=== PATIENT | male | born 1995 | race Two or more races ===

== ENCOUNTER 2023-01-23 19:44 | Inpatient (IN) | payer MEDICAID, OTHER ==
[~2023-01-23] VITALS: Ht 177.8 cm; Wt 118.6 kg
[2023-01-24] MEDS ORDERED: DexAMETHasone SOD PHOS 10MG/1ML VIAL INJ IV ONE ×2 (01:15→10:00)
[2023-01-24] MEDS ORDERED: diphenhdrAMINE HCL 50 MG/1 ML VL IV ONE (01:15)
[2023-01-24 01:44] LABS: Basophils # (auto) 0 10 ^3/uL (0-0.2); Basophils % (auto) 0.3 % (0.0-2.0); Eosinophils # (auto) 0.4 10 ^3/uL (0-0.8); Eosinophils % (auto) 3.7 % (0.0-7.0); Hematocrit 47.2 % (41.0-53.0); Hemoglobin 15.4 g/dL (13.5-17.5); Lymphocytes % (auto) 20.8 % (10.0-50.0); Mean Corpuscular Hemoglobin 29.7 pg (28.0-32.0); Mean Corpuscular Hgb Conc. 32.6 g/dL (32.0-36.0); Mean Corpuscular Volume 91.2 fL (80.0-100.0); Monocytes # (auto) 0.5 10 ^3/uL (0-1.3); Monocytes % (auto) 5.5 % (0.0-12.0); Neutrophils # (auto) 6.9 10 ^3/uL (1.6-8.6); Neutrophils % (auto) 69.7 % (37.0-80.0); Nucleated Red Blood Cells % 0.1 %; Red Blood Cells 5.18 10^6/uL (4.5-5.90); Red Cell Distribution Width 14.2 % (11.8-14.3); White Blood Cell 9.8 10^3/uL (4.4-10.8)
[2023-01-24 01:51] LABS: INR 1.03 (0.9-1.15)
[2023-01-24 01:56] LABS: Anion Gap 6 (5-15); Blood Alcohol < 3.0 mg/dL (<10); Blood Urea Nitrogen 15 mg/dL (7-18); Calcium 9.1 mg/dL (8.5-10.1); Carbon Dioxide 23 mmol/L (21-32); Chloride 110 mmol/L (98-107); Glucose 102 mg/dL (74-106); Lipase 130 U/L (73-393); Magnesium 2.4 mg/dL (1.6-2.6); Potassium 3.5 mmol/L (3.5-5.1); Sodium 139 mmol/L (136-145)
[2023-01-24 02:04] LABS: Alanine Aminotransferase 49 U/L (16-61); Alkaline Phosphatase 67 U/L (45-117); Aspartate Aminotransferase 22 U/L (15-37); BUN/Creatinine Ratio 15.2 (10.0-20.0); Bilirubin, Total 0.8 mg/dL (0.2-1.0); CRP High Sensitivity 1.51 mg/dL (< 0.3); GFR African American 115 mL/min; GFR Non-African American 95 mL/min
[2023-01-24] MEDS ORDERED: PIPERACILLIN-TAZOB 3.375GM 100 ML IV ONE (05:45)
[2023-01-24] MEDS ORDERED: VANCOMYCIN 1GM/250ML 250 ML IV ONE (05:45)
[2023-01-24] MEDS ORDERED: VANCOMYCIN PER PHARMACY 0 MG IV SCH (09:15)
[2023-01-24] MEDS: PANTOPRAZOLE 40 MG TAB PO SCH (10:22)
[2023-01-24] MEDS: predniSONE 20 MG TAB PO SCH (10:23)
[2023-01-24] MEDS ORDERED: VANCOMYCIN 1GM/250ML 250 ML IV SCH (14:27)
[2023-01-24] MEDS: PIPERACILLIN-TAZOB 3.375GM 100 ML IV SCH ×2 (18:20→22:00)
[2023-01-25 01:40] VITALS: BP 119/77
[2023-01-25 05:00] VITALS: BP 110/69
[2023-01-25] MEDS: PIPERACILLIN-TAZOB 3.375GM 100 ML IV SCH ×3 (05:46→22:20)
[2023-01-25 06:11] LABS: Basophils # (auto) 0 10 ^3/uL (0-0.2); Basophils % (auto) 0.2 % (0.0-2.0); Eosinophils # (auto) 0.1 10 ^3/uL (0-0.8); Eosinophils % (auto) 0.5 % (0.0-7.0); Hematocrit 45.4 % (41.0-53.0); Hemoglobin 14.6 g/dL (13.5-17.5); Lymphocytes # (auto) 1.9 10 ^3/uL (0.4-5.4); Lymphocytes % (auto) 13.2 % (10.0-50.0); Mean Corpuscular Hemoglobin 29.6 pg (28.0-32.0); Mean Corpuscular Hgb Conc. 32.2 g/dL (32.0-36.0); Mean Corpuscular Volume 91.9 fL (80.0-100.0); Monocytes # (auto) 1.2 10 ^3/uL (0-1.3); Monocytes % (auto) 8.6 % (0.0-12.0); Neutrophils % (auto) 77.5 % (37.0-80.0); Nucleated Red Blood Cells % 0.2 %; Red Blood Cells 4.95 10^6/uL (4.5-5.90); White Blood Cell 14.2 10^3/uL (4.4-10.8)
[2023-01-25 06:48] LABS: Albumin 3.5 g/dL (3.4-5.0); Bilirubin, Total 0.4 mg/dL (0.2-1.0); Calcium 9.2 mg/dL (8.5-10.1); Total Protein 7.4 g/dL (6.4-8.2)
[2023-01-25 09:00] VITALS: BP 116/72
[2023-01-25] MEDS: PANTOPRAZOLE 40 MG TAB PO SCH (10:47)
[2023-01-25] MEDS: predniSONE 20 MG TAB PO SCH (10:47)
[2023-01-25] MEDS: VANCOMYCIN 1GM/250ML 250 ML IV SCH ×2 (10:48→18:10)
[2023-01-25 13:00] VITALS: BP 130/74
[2023-01-25] MEDS ORDERED: ONDANSETRON HCL 4 MG/2 ML VIAL IV PRN (16:15)
[2023-01-25] MEDS ORDERED: HYDROcodone-ACET 5/325MG TAB PO PRN (16:15)
[2023-01-25] MEDS ORDERED: MORPHINE SULFATE INJ 2 MG/ml SYRG IV PRN (16:15)
[2023-01-25] MEDS ORDERED: ACETAMINOPHEN 500 MG TAB PO PRN (16:15)
[2023-01-25 16:52] VITALS: BP 121/75
[2023-01-25 22:00] VITALS: BP 136/74
[2023-01-25] MEDS: BACITRACIN TOP OINT 1 UD PKG TOP SCH (22:20)
[2023-01-26] MEDS: VANCOMYCIN 1GM/250ML 250 ML IV SCH ×5 (01:54→22:17)
[2023-01-26 05:00] VITALS: BP 108/68
[2023-01-26] MEDS: PIPERACILLIN-TAZOB 3.375GM 100 ML IV SCH ×4 (06:03→18:46)
[2023-01-26 09:00] VITALS: BP 107/72
[2023-01-26] MEDS: BACITRACIN TOP OINT 1 UD PKG TOP SCH ×3 (10:13→22:24)
[2023-01-26 13:00] VITALS: BP 123/81
[2023-01-26 17:00] VITALS: BP 120/79
[2023-01-26 22:00] VITALS: BP 113/68
[2023-01-27] MEDS: PIPERACILLIN-TAZOB 3.375GM 100 ML IV SCH ×3 (01:30→15:26)
[2023-01-27 05:00] VITALS: BP 122/75
[2023-01-27 06:05] LABS: BUN/Creatinine Ratio 17.4 (10.0-20.0); Calcium 8.1 mg/dL (8.5-10.1); Potassium 4.6 mmol/L (3.5-5.1)
[2023-01-27 06:20] LABS: Basophils # (auto) 0 10 ^3/uL (0-0.2); Basophils % (auto) 0.4 % (0.0-2.0); Eosinophils # (auto) 0.7 10 ^3/uL (0-0.8); Eosinophils % (auto) 8.2 % (0.0-7.0); Hematocrit 44.5 % (41.0-53.0); Hemoglobin 14.5 g/dL (13.5-17.5); Lymphocytes # (auto) 3.7 10 ^3/uL (0.4-5.4); Lymphocytes % (auto) 40.4 % (10.0-50.0); Mean Corpuscular Hemoglobin 30.2 pg (28.0-32.0); Mean Corpuscular Hgb Conc. 32.7 g/dL (32.0-36.0); Mean Corpuscular Volume 92.5 fL (80.0-100.0); Monocytes # (auto) 0.6 10 ^3/uL (0-1.3); Monocytes % (auto) 7.1 % (0.0-12.0); Neutrophils % (auto) 43.9 % (37.0-80.0); Nucleated Red Blood Cells % 0.2 %; Red Blood Cells 4.81 10^6/uL (4.5-5.90); Red Cell Distribution Width 14.1 % (11.8-14.3); White Blood Cell 9.1 10^3/uL (4.4-10.8)
[2023-01-27] MEDS: VANCOMYCIN 1GM/250ML 250 ML IV SCH ×2 (06:58→13:30)
[2023-01-27 08:00] VITALS: BP 124/81
[2023-01-27 09:00] VITALS: BP 124/81
[2023-01-27] MEDS: BACITRACIN TOP OINT 1 UD PKG TOP SCH ×2 (10:16→22:00)
[2023-01-27 13:00] VITALS: BP 126/72
[2023-01-27] MEDS ORDERED: CLIN-203 PO (15:25)
[2023-01-27] MEDS ORDERED: LEVO500T91 PO (15:25)
[2023-01-27 17:00] VITALS: BP 136/78
[2023-01-27 22:00] VITALS: BP 125/63
[2023-01-28] MEDS: VANCOMYCIN 1GM/250ML 250 ML IV SCH ×2 (00:28→07:39)
[2023-01-28] MEDS: PIPERACILLIN-TAZOB 3.375GM 100 ML IV SCH (00:32)
[2023-01-28 05:00] VITALS: BP 123/78
[2023-01-28 08:00] VITALS: BP 125/80
[2023-01-28 09:04] VITALS: BP 125/80
[2023-01-28] MEDS: BACITRACIN TOP OINT 1 UD PKG TOP SCH (09:20)
[2023-01-28] MEDS ORDERED: PIPERACILLIN-TAZOB 3.375GM 100 ML IV SCH (10:00)
[2023-01-28 10:06] VITALS: BP 125/80
[2023-01-28] MEDS ORDERED: VANCOMYCIN 1GM/250ML 250 ML IV SCH (16:00)
== END 2023-01-28 12:58 | disposition home or self-care (01) | DRG 383 ==
LOC: ER 19:44 → OVERFLOW 01-24 09:28 → WEST WING 01-25 01:40
PROVIDERS: ADMIT Nurse Practitioner Family; ATTEND Internal Medicine
DX: L03.114 Cellulitis of left upper limb (principal); L30.9 Dermatitis, unspecified; R23.8 Other skin changes; M79.89 Other specified soft tissue disorders
CPT/HCPCS: 36415; 73200; 80048; 80053; 80202; 80320; 82010; 82565; 83605; 83690; 83735; 83930; 84443; 84484; 85025; 85610; 85652; 86141; 86900; 86901; 96365; 96367; 96375; G0378; J1100; J2543